=== PATIENT | female | born 1990 | race Caucasian/White ===

== ENCOUNTER 2018-09-22 03:28 | Emergency (ER) | payer SELFPAY ==
[~2018-09-22] VITALS: Ht 162.6 cm; Wt 111.8 kg
[2018-09-22 03:33] VITALS: Ht 162.6 cm; Wt 111.8 kg
[2018-09-22 04:11] LABS: BASOPHIL % 0.3 % (0-2); PLATELET COUNT 293 x10^3mcL (130-400); RED CELL DISTRIBUTION WIDTH 13.9 % (11.5-14.5)
[2018-09-22 04:19] LABS: CALCIUM 8.6 mg/dL (8.5-10.1); CARBON DIOXIDE 27.6 mmol/L (21-32); CHLORIDE SERUM 104 mmol/L (98-107); CREATININE SERUM 0.9 mg/dL (0.6-1.0); GFR1 > 60 mL/min; GLUCOSE SERUM 108 mg/dL (74-106); POTASSIUM SERUM 3.9 mmol/L (3.5-5.1); SODIUM SERUM 140 mmol/L (136-145)
[2018-09-22 04:24] LABS: ALBUMIN 3.9 g/dL (3.4-5.0); ALKALINE PHOSPHATASE 81 U/L (46-116); ALT/SGPT 18 U/L (14-59); AST/SGOT 16 U/L (15-37); BILIRUBIN TOTAL 0.33 mg/dL (0.20-1.00); LIPASE 151 IU/L (73-393); TOTAL PROTEIN, SERUM 7.9 g/dL (6.4-8.2)
[2018-09-22 04:45] VITALS: BP 138/93
== END 2018-09-22 05:22 | disposition home or self-care (01) ==
LOC: ED 03:28
PROVIDERS: Emergency Medicine
DX: K29.00 Acute gastritis without bleeding (principal); N39.0 Urinary tract infection, site not specified
CPT/HCPCS: J1885; Q0092